=== PATIENT | female | born 1965 | race Caucasian/White ===

== ENCOUNTER 2016-12-29 23:20 | Observation (INO) | payer OTHER ==
[~2016-12-29] VITALS: Ht 152.4 cm; Wt 103.0 kg
[~2016-12-29 23:20] MED LIST: BENTYL10 MG PO; BUSPIRONE HCL15 MG PO; CLONAZEPAM0.5 MG PO; CYCLOBENZAPRINE5 MG PO; ELAVIL50 MG PO; HCTZ; HYDROCHLOROTHIA25 MG PO; HYDROXYZINE HCL25 MG PO; LITHIUM CARBON450 MG PO; LORAZEPAM; MELOXICAM7.5 MG PO; MS CONTIN,ORAMO15 M1 PO; NAPROSYN500 MG PO; OMEPRAZOLE40 M1 PO; PEPCID20 MG PO; PERCOCET 5/31 TABLET PO; PREDNISONE20 MG; PRILOSEC; PROZAC; SUMATRIPTAN SUC50 MG PO; VENLAFAXINE H37.5 M2 PO; ZESTORETIC,P1 TABLE2 PO; ZOFRAN4 MG PO
[2016-12-29 23:55] LABS: HEMATOCRIT 43.9 % (36.0-46.0); MCH 30.6 PG (29.0-34.0); MCHC 34.6 G/DL (30.0-36.0); MCV 88.3 FL (83-99); RBC DIS.WIDTH-CV 12.3 % (11.8-14.6); RBC DIS.WIDTH-SD 39.3 % (39-53); RED BLOOD COUNT 4.97 M/uL (3.80-5.20); WHITE BLOOD COUNT 5.8 K/uL (4.1-10.2)
[2016-12-30 00:16] LABS: CHLORIDE 105 mEq/L (99-109); POTASSIUM 4.1 mEq/L (3.7-5.4); SODIUM 138 mEq/L (136-147)
[2016-12-30 00:19] LABS: GLUCOSE 98 mg/dL (70-99)
[2016-12-30 00:20] LABS: ANION GAP 9 MEQ/L (2-14)
[2016-12-30 00:21] LABS: TOTAL BILIRUBIN 0.7 mg/dL (0.0-1.0); TROP-I INTERPRETATION NEGATIVE; TROPONIN-I < 0.01 ng/mL (0.0-0.30)
[2016-12-30 00:22] LABS: ALKALINE PHOSPHATASE 72 IU/L (3-129); GFR ESTIMATE (CALCULATED) > 59 mL/min/
[2016-12-30 00:24] LABS: DIRECT BILIRUBIN 0.3 mg/dL (0.0-0.3); UREA NITROGEN (BUN) 15 mg/dL (9-23)
[2016-12-30 00:26] LABS: LIPASE 15 U/L (1.0-51.0)
[2016-12-30 00:59] LABS: HEMATOLOGY COMMENT 1 SMEAR COMPATIBLE; MEAN PLAT.VOLUME 12.6 uM^3 (9.5-12.4); PLAT.SUFFICIENCY DECREASED; PLATELET COUNT 115 K/uL (156-360)
[2016-12-30] MEDS ORDERED: PERCOCET 5/31 TABLET PO (01:13)
[2016-12-30] MEDS ORDERED: CLONAZEPAM1 MG PO (01:13)
[2016-12-30] MEDS ORDERED: LISINOPRIL40 MG PO (01:15)
[2016-12-30] MEDS ORDERED: CYMBALTA60 MG PO (01:16)
[2016-12-30] MEDS ORDERED: CLONIDINE HCL0.1 MG PO (01:16)
[2016-12-30] MEDS ORDERED: GABAPENTIN300 MG PO (01:16)
[2016-12-30 04:44] VITALS: BP 127/72
[2016-12-30 07:10] LABS: TROP-I INTERPRETATION NEGATIVE; TROPONIN-I < 0.01 ng/mL (0.0-0.30)
[2016-12-30 08:07] VITALS: BP 127/66
[2016-12-30 11:31] VITALS: BP 90/53
[2016-12-30 13:49] LABS: TROP-I INTERPRETATION NEGATIVE; TROPONIN-I < 0.01 ng/mL (0.0-0.30)
[2016-12-30 15:24] VITALS: BP 107/64
== END 2016-12-30 15:56 | disposition home or self-care (01) ==
LOC: EME → EDBD 23:20 → EME 23:20 → EDOF 12-30 02:54 → 5WEST 12-30 03:46
PROVIDERS: Internal Medicine
DX: M79.602 Pain in left arm (principal); S29.011A Strain of muscle and tendon of front wall of thorax, initial encounter; I16.0 Hypertensive urgency; I10 Essential (primary) hypertension; E66.9 Obesity, unspecified; Z68.41 Body mass index [BMI] 40.0-44.9, adult; G89.29 Other chronic pain; M54.9 Dorsalgia, unspecified; F17.200 Nicotine dependence, unspecified, uncomplicated; F31.9 Bipolar disorder, unspecified; D69.6 Thrombocytopenia, unspecified
CPT/HCPCS: 71020; 72040; 80048; 80076; 83690; 84484; 85027; 93005; 99281; 99285; G0378; J2270; J2405

== ENCOUNTER 2017-06-03 18:14 | Emergency (ER) | payer OTHER ==
[~2017-06-03] VITALS: Ht 165.1 cm; Wt 107.0 kg
[~2017-06-03 18:14] MED LIST changes: +CLONAZEPAM1 MG PO; +CLONIDINE HCL0.1 MG PO; +CYMBALTA60 MG PO; +EFFEXOR XR150 MG PO; +GABAPENTIN300 MG PO; +LISINOPRIL40 MG PO
[2017-06-03 19:44] LABS: CHLORIDE 106 mEq/L (99-109)
[2017-06-03 19:45] LABS: POTASSIUM 3.8 mEq/L (3.7-5.4); SODIUM 140 mEq/L (136-147)
[2017-06-03 19:46] LABS: GLUCOSE 89 mg/dL (70-99)
[2017-06-03 19:47] LABS: HEMATOCRIT 48.1 % (36.0-46.0); MCH 30.8 PG (29.0-34.0); MCHC 34.7 G/DL (30.0-36.0); MCV 88.6 FL (83-99); MEAN PLAT.VOLUME 13.9 uM^3 (9.5-12.4); PLATELET COUNT 127 K/uL (156-360); RBC DIS.WIDTH-CV 11.9 % (11.8-14.6); RBC DIS.WIDTH-SD 38.9 % (39-53); RED BLOOD COUNT 5.43 M/uL (3.80-5.20)
[2017-06-03 19:48] LABS: ANION GAP 10 MEQ/L (2-14)
[2017-06-03 19:50] LABS: GFR ESTIMATE (CALCULATED) > 59 mL/min/
[2017-06-03 19:51] LABS: UREA NITROGEN (BUN) 13 mg/dL (9-23)
[2017-06-03 21:14] LABS: TROP-I INTERPRETATION NEGATIVE; TROPONIN-I < 0.01 ng/mL (0.0-0.30)
[2017-06-03 21:40] LABS: ADD MIUA? NO; BILIRUBIN NEGATIVE; BLOOD NEGATIVE; COLOR YELLOW ((YELLOW)); GLUCOSE (STRIP) NEGATIVE; KETONES NEGATIVE; LEUKOCYTES NEGATIVE; NITRITE NEGATIVE; PROTEIN (STRIP) NEGATIVE; SPECIFIC GRAVITY 1.012 (1.000-1.030); UROBILINOGEN 0.2 MG/DL (0.2-1.0)
[2017-06-03 23:01] VITALS: BP 146/87
== END 2017-06-03 23:01 | disposition home or self-care (01) ==
LOC: EXP 18:14 → EME 18:14 → EXP 23:01
PROVIDERS: Nurse Practitioner Family
DX: I10 Essential (primary) hypertension (principal); S00.03XA Contusion of scalp, initial encounter; W22.09XA Striking against other stationary object, initial encounter; R07.89 Other chest pain; F17.200 Nicotine dependence, unspecified, uncomplicated; F31.9 Bipolar disorder, unspecified; F41.9 Anxiety disorder, unspecified; F32.9 Major depressive disorder, single episode, unspecified; Z88.0 Allergy status to penicillin; Z88.8 Allergy status to other drugs, medicaments and biological substances
CPT/HCPCS: 70450; 71020; 80048; 81003; 84484; 85027; 93005; 99281; 99284; J1885

== ENCOUNTER 2017-09-18 15:30 | Emergency (ER) | payer OTHER ==
[~2017-09-18] VITALS: Ht 152.4 cm; Wt 111.3 kg
[2017-09-18 17:24] LABS: HEMATOCRIT 46.8 % (36.0-46.0); HEMOGLOBIN 16.7 G/DL (11.9-15.5); MCH 32.2 PG (29.0-34.0); MCHC 35.7 G/DL (30.0-36.0); MCV 90.2 FL (83-99); RBC DIS.WIDTH-CV 12.4 % (11.8-14.6); RBC DIS.WIDTH-SD 41.1 % (39-53); RED BLOOD COUNT 5.19 M/uL (3.80-5.20); WHITE BLOOD COUNT 10.1 K/uL (4.1-10.2)
[2017-09-18 17:49] LABS: ALBUMIN 4.2 G/DL (3.2-4.8); CHLORIDE 105 MEQ/L (99-109); SODIUM 137 MEQ/L (136-147); TOTAL BILIRUBIN 0.8 MG/DL (0.0-1.0)
[2017-09-18 17:55] LABS: ALKALINE PHOSPHATASE 76 IU/L (3-129); ALT (GPT) 22 IU/L (3-49); AST (GOT) 16 IU/L (2-34); CREATININE 0.8 MG/DL (0.6-1.3); GFR ESTIMATE (CALCULATED) > 59 mL/min/; GLUCOSE 102 mg/dL (70-99); TOTAL PROTEIN 7.3 G/DL (6.4-8.3); UREA NITROGEN (BUN) 15 mg/dL (9-23)
[2017-09-18 17:57] LABS: QUANTITATIVE HCG < 4.0 MIU/ML
[2017-09-18 18:54] LABS: LIPASE 5 U/L (1.0-51.0)
[2017-09-18 19:02] LABS: APPEARANCE SL.HAZY ((CLEAR)); BILIRUBIN NEGATIVE; BLOOD NEGATIVE; COLOR YELLOW ((YELLOW)); GLUCOSE (STRIP) NEGATIVE; KETONES NEGATIVE; LEUKOCYTES NEGATIVE; NITRITE NEGATIVE; PROTEIN (STRIP) 100; SPECIFIC GRAVITY 1.031 (1.000-1.030); UROBILINOGEN 0.2 MG/DL (0.2-1.0)
[2017-09-18 19:28] LABS: BACTERIA 1+ /HPF; EPITHELIAL CELLS NONE SEEN /HPF; MUCUS NONE SEEN /LPF; RED BLOOD CELLS NONE SEEN /HPF (0-5); UCUL ADDED? NO; WHITE BLOOD CELLS NONE SEEN /HPF (0-5)
[2017-09-18 19:29] LABS: PLAT.SUFFICIENCY DECREASED; PLATELET COUNT 121 K/uL (156-360)
[2017-09-18] MEDS ORDERED: BENTYL20 MG PO (19:47)
[2017-09-18] MEDS ORDERED: ZOFRAN ODT4 MG PO (19:47)
[2017-09-18 20:11] VITALS: BP 122/62
== END 2017-09-18 20:12 | disposition home or self-care (01) ==
LOC: EME 15:30
DX: R11.2 Nausea with vomiting, unspecified (principal); R19.7 Diarrhea, unspecified; F17.200 Nicotine dependence, unspecified, uncomplicated; I10 Essential (primary) hypertension; F32.9 Major depressive disorder, single episode, unspecified; F31.9 Bipolar disorder, unspecified; F41.9 Anxiety disorder, unspecified; Z88.0 Allergy status to penicillin; Z91.041 Radiographic dye allergy status
CPT/HCPCS: 74176; 80053; 81003; 83690; 84702; 85027; 99281; 99284

== ENCOUNTER 2017-12-30 10:32 | Emergency (ER) | payer OTHER ==
[~2017-12-30] VITALS: Ht 152.4 cm; Wt 110.9 kg
[~2017-12-30 10:32] MED LIST changes: +BENTYL20 MG PO; +ZOFRAN ODT4 MG PO
[2017-12-30 11:47] LABS: APPEARANCE CLEAR ((CLEAR)); BILIRUBIN NEGATIVE; BLOOD NEGATIVE; COLOR YELLOW ((YELLOW)); GLUCOSE (STRIP) NEGATIVE; KETONES NEGATIVE; LEUKOCYTES NEGATIVE; NITRITE NEGATIVE; PROTEIN (STRIP) NEGATIVE; SPECIFIC GRAVITY 1.024 (1.000-1.030); UCUL ADDED? NO; UROBILINOGEN 0.2 MG/DL (0.2-1.0)
[2017-12-30 12:24] LABS: HEMATOCRIT 41.6 % (36.0-46.0); HEMOGLOBIN 14.8 G/DL (11.9-15.5); MCH 31.6 PG (29.0-34.0); MCHC 35.6 G/DL (30.0-36.0); MCV 88.7 FL (83-99); RBC DIS.WIDTH-CV 12.5 % (11.8-14.6); RED BLOOD COUNT 4.69 M/uL (3.80-5.20); WHITE BLOOD COUNT 6.1 K/uL (4.1-10.2)
[2017-12-30 12:58] LABS: CHLORIDE 108 MEQ/L (99-109); POTASSIUM 3.8 MEQ/L (3.7-5.4); SODIUM 139 MEQ/L (136-147); TOTAL BILIRUBIN 0.4 MG/DL (0.0-1.0)
[2017-12-30 13:04] LABS: ALKALINE PHOSPHATASE 80 IU/L (3-129); ALT (GPT) 30 IU/L (3-49); AST (GOT) 19 IU/L (2-34); CREATININE 0.7 MG/DL (0.6-1.3); GFR ESTIMATE (CALCULATED) > 59 mL/min/; GLUCOSE 101 mg/dL (70-99); LIPASE 13 U/L (1.0-51.0); TOTAL PROTEIN 6.5 G/DL (6.4-8.3); UREA NITROGEN (BUN) 11 mg/dL (9-23)
[2017-12-30 13:08] LABS: QUANTITATIVE HCG 4.6 MIU/ML
[2017-12-30 13:16] LABS: PLAT.SUFFICIENCY DECREASED; PLATELET COUNT 118 K/uL (156-360)
[2017-12-30 14:36] LABS: TROP-I INTERPRETATION NEGATIVE; TROPONIN-I < 0.01 ng/mL (0.0-0.30)
[2017-12-30] MEDS ORDERED: ZOFRAN4 MG SL (17:03)
[2017-12-30] MEDS ORDERED: BENTYL10 MG PO (17:03)
[2017-12-30 17:51] VITALS: BP 149/105
== END 2017-12-30 17:55 | disposition home or self-care (01) ==
LOC: EME 10:32
PROVIDERS: Physician Assistant
DX: R10.11 Right upper quadrant pain (principal); I10 Essential (primary) hypertension; F31.9 Bipolar disorder, unspecified; F41.9 Anxiety disorder, unspecified; F32.9 Major depressive disorder, single episode, unspecified; F17.200 Nicotine dependence, unspecified, uncomplicated; Z91.041 Radiographic dye allergy status; Z88.0 Allergy status to penicillin; Z88.8 Allergy status to other drugs, medicaments and biological substances
CPT/HCPCS: 71046; 74176; 76705; 80053; 81003; 83690; 84484; 84702; 85027; 93005; 99281; 99284; J1885